=== PATIENT | male | born 2000 | race Caucasian/White ===

== ENCOUNTER 2022-12-04 14:30 | Emergency (ER) | payer MEDICAID, SELFPAY ==
[2022-12-04 14:43] VITALS: BP 121/73; PULSE 96; RESP 14; TEMP 36.7; O2SAT 99; BMI 34.7
== END 2022-12-04 15:09 | disposition left against medical advice (07) ==
PROVIDERS: Emergency Provider Family Medicine
DX: Z53.21 Procedure and treatment not carried out due to patient leaving prior to being seen by health care provider (principal)
CPT/HCPCS: 87491; 87591; 87661; J1580

== ENCOUNTER → 2023-03-06 10:51 | Outpatient (BNVA) | payer MEDICAID, SELFPAY | PROVIDERS: Visit Provider Nurse Practitioner | DX: R07.89 Other chest pain (principal) | CPT/HCPCS: 71046 ==

== ENCOUNTER → 2023-04-19 13:03 | Outpatient (BNVA) | payer MEDICAID, SELFPAY | PROVIDERS: PCP Nurse Practitioner; Visit Provider Nurse Practitioner | DX: J02.9 Acute pharyngitis, unspecified (principal) | CPT/HCPCS: 87880 ==

== ENCOUNTER 2024-03-21 19:19 | Emergency (ER) | payer MEDICAID, SELFPAY ==
[2024-03-21 19:45] VITALS: BP 133/85; PULSE 109; RESP 20; TEMP 36.8; O2SAT 99; BMI 35.4
[2024-03-21] MEDS: OLANZapine 10 mg ODT 20 MG PO (20:52)
[2024-03-21 21:15] VITALS: BP 142/84; PULSE 103; O2SAT 96
--- NOTE | 2024-03-21 23:08 | W.ED.PSYCHS ---
HPI - Psych General: Chief Complaint: Psychiatric Symptoms Stated Complaint: [facility], crisis line sent Time Seen by Provider: 03/21/24 19:45 History of Present Illness: 24-year-old male who has a history of recent methamphetamine abuse. He says he last used yesterday. He evidently got into an argument with grandparent earlier in the evening, and was asked to come here. He is here for evaluation. He is much more calm now. He denies suicidal or homicidal ideation. He has been cooperative with ER staff. He notes that he has a history of trouble with anger problems, and with coping skills. He wishes not to use drugs, but does not necessarily want admission or rehabilitation placement. Related Data Previous Rx's Medication Instructions Recorded azithromycin 500 mg tablet See Rx Instructions PO .COMPLEX #5 04/19/23 tabs olanzapine 15 mg tablet (Zyprexa) 15 mg PO QPM #10 tabs 03/21/24 Allergies Allergy/AdvReac Type Severity Reaction Status Date / Time amoxicillin Allergy ALGY-Anaphy Verified 04/19/23 11:40 laxis Penicillins Allergy ALGY-Anaphy Verified 04/19/23 11:[address] [facility] ED PFSH: Family History Mother Chronic kidney disease (CKD) Hypertension Father Hypertension Grandmother Thyroid disease paternal DDD (degenerative disc disease) Denies family history of Diabetes Clotting disorder Bleeding disorder Cancer Stroke Physical Exam Const: COMMON NORMALS: no acute distress GENERAL APPEARANCE: cooperative; not ill appearing and not frail appearing HENMT: COMMON NORMALS: normocephalic, atraumatic and Normal external nose present HEAD & SCALP: normocephalic and atraumatic FACE & SINUS: normal facial exam and face symmetric NOSE: Normal external nose present Eye: COMMON NORMALS: Equal, round and reactive pupils present and EOMs intact bilaterally PUPIL: Yes Equal, round and reactive pupils present Neck/C-Spine: GENERAL: Yes trachea midline Chest: CHEST: Yes Symmetrical chest wall rise Resp: COMMON NORMALS: normal respiratory effort, No retractions, No use of accessory muscles and clear to auscultation bilaterally AUSCULTATION: clear to auscultation bilaterally Cardio: COMMON NORMALS: regular rate and regular rhythm RATE: regular rate RHYTHM: regular rhythm GI: COMMON NORMALS: Normal to inspection, nondistended, normoactive bowel sounds present Extremity: COMMON NORMALS: no pedal edema Neuro: [place] COMA SCALE: document GCS findings [place] coma scale eye opening: Spontaneous [place] coma scale verbal response: Orientated [place] coma scale motor response: Obey commands [place] coma scale total score: 15 SENSORY EXAM: Yes extremities (intact) Psych: COMMON NORMALS: speech normal SPEECH: Yes normal speech Skin: COMMON NORMALS: no rashes or lesions noted GENERAL SKIN EXAM: no rashes or lesions noted Course Vital Signs: Vital signs: Vital Signs Temperature 98.2 F 03/21/24 19:45 Pulse Rate 103 H 03/21/24 21:15 Respiratory Rate 20 H 03/21/24 19:45 Blood Pressure 142/84 03/21/24 21:15 Pulse Oximetry 96 03/21/24 21:15 MDM - Psych Medical Decision Making This patient has been calm and cooperative on exam. He answers all questions appropriately. He is not suicidal or homicidal. He does not wish to be admitted to the psychiatry unit. We gave him the option to do this, but he declined. We also gave him the option of calling inpatient rehab to see if we can get him a bed, he declined this as well. He would like outpatient treatment. He agreed to medication to help him rest this evening, and to help control symptoms of amphetamine withdrawal. He knows to return for any worsening symptoms. We will ask case management to make him a follow-up appointment with [facility] and [place] closer to his home. No radiology studies performed this visit Discharge Plan Discharge Patient Disposition: Home Clinical Impression: Withdrawal from methamphetamine Condition: Stable Prescriptions: New olanzapine [Zyprexa] 15 mg tablet 15 mg PO QPM Qty: 10 0RF No Action gentamicin 40 mg/mL solution 240 mg IM ONCE Qty: 6 0RF azithromycin 500 mg tablet See Rx Instructions PO .COMPLEX Qty: 5 0RF Rx Instructions: For 500 mg dose pack: take 500 mg once daily for 3 days PO Discharge Orders: Discharge ED (Routine); Ordered 03/21/24 Ordered By: Sotero Chan Referrals: Lisa Meek FNP [Primary Care Provider] - 1-3 days Patient Instructions: Methamphetamine Use Disorder (ED), Opioid Safety, Pain Management Activity Restrictions/Additional Instructions: Take medication nightly as needed for agitation, insomnia, etc. Return for significant thoughts of wanting to harm your self or others. Case management will follow-up with you at the beginning of next week regarding outpatient treatment. Coding Level of Care Code ED Health Insurance Specialist for Tre Lopez
== END 2024-03-21 21:15 | disposition home or self-care (01) ==
PROVIDERS: Emergency Provider Emergency Medicine; PCP Nurse Practitioner
DX: F15.23 Other stimulant dependence with withdrawal (principal)
CPT/HCPCS: 99283